=== PATIENT | male | born 1965 | race Caucasian/White ===

== ENCOUNTER 2022-09-26 12:38 | Emergency (ER) | payer MEDICAID ==
[~2022-09-26] VITALS: Ht 175.3 cm; Wt 69.6 kg
[2022-09-26] MEDS ORDERED: LIDOcaine 1% W/epiNEPHrine 1:100,000 20ml vial SQ ONE ×2 (13:20→14:30)
[2022-09-26] MEDS ORDERED: bacitracin 15gm ointment TP ONE ×2 (13:20→14:50)
[2022-09-26] MEDS ORDERED: amox tr/potassium clavulanate 875/125mg TAB PO ONE (13:20)
[2022-09-26] MEDS ORDERED: TETanus/Pertussis (Acell)/Diphther VAC/PF (Tdap-Adult) 0.5ml syringe IMVAC ONE ×2 (13:20→14:50)
[2022-09-26] MEDS ORDERED: DOXYCYCLINE 100MG CAPSULE PO STA (14:35)
[2022-09-26] MEDS ORDERED: clindamycin 150mg capsule PO ONE (14:35)
[2022-09-26] MEDS ORDERED: CLIN300C70 PO (14:37)
[2022-09-26] MEDS ORDERED: DOXY-356 PO (14:37)
--- NOTE | 2022-09-26 14:45 | NUR ---
RN CALLED PHARM D/T UNABLE TO REMOVE BACITRACIN OR BOOSTRIX VAC AND THEY WILL RETIME SO IT CAN BE REMOVED.
[2022-09-26 14:57] VITALS: BP 143/81
== END 2022-09-26 15:17 | disposition home or self-care (01) ==
LOC: ER 12:39
DX: S61.451A Open bite of right hand, initial encounter (principal); Z88.0 Allergy status to penicillin; Z79.899 Other long term (current) drug therapy; W54.0XXA Bitten by dog, initial encounter; Y93.89 Activity, other specified; Y92.89 Other specified places as the place of occurrence of the external cause; Y99.8 Other external cause status
CPT/HCPCS: 12002; 90471; 90715; 99283; A6258

== ENCOUNTER 2022-10-04 15:41 | Emergency (ER) | payer MEDICAID ==
[~2022-10-04] VITALS: Ht 175.3 cm; Wt 70.5 kg
[~2022-10-04 15:41] MED LIST: CLIN300C70 PO; DOXY-356 PO
[2022-10-04 15:52] VITALS: BP 136/83
[2022-10-04] MEDS ORDERED: bacitracin 15gm ointment TP ONE (17:25)
== END 2022-10-04 17:36 | disposition home or self-care (01) ==
LOC: ER 15:41
DX: S61.411D Laceration without foreign body of right hand, subsequent encounter (principal); Z79.899 Other long term (current) drug therapy; W54.0XXD Bitten by dog, subsequent encounter
CPT/HCPCS: 99282